=== PATIENT | male | born 1980 | race Hispanic/Latino ===

== ENCOUNTER 2018-08-26 13:57 | Emergency (ER) | payer OTHER ==
[2018-08-26] MEDS ORDERED: KETOROLAC TROMETHAMINE 60 MG/2 ML VIAL ONE (14:13)
[2018-08-26] MEDS ORDERED: ACETAMINOPHEN 325 MG TAB ONE (14:13)
[2018-08-26 14:39] LABS: RAPID GROUP A STREP NEGATIVE (NEGATIVE)
== END 2018-08-26 15:00 | disposition home or self-care (01) ==
LOC: EDH 13:57 → EEVIPCON 13:57 → EDH 15:00
DX: J06.9 Acute upper respiratory infection, unspecified (principal)
CPT/HCPCS: 71045; 87804 ×2; 87880; 96372; 99285; J1885